=== PATIENT | female | born 1955 | race Caucasian/White ===

== ENCOUNTER 2020-10-05 14:09 | Outpatient (CLI) | payer OTHER, SELFPAY ==
--- NOTE | 2020-10-05 | ECG_ITS ---
Measurements Intervals Emigrant Rate: 81 P: -3 OK: 168 QRS: 32 QRSD: 98 T: 72 QT: 403 QTc: 468 Interpretive Statements SINUS RHYTHM BORDERLINE ST-T WAVE ABNORMALITY- ANTEROLAT/HIGH LAT LEADS BORDERLINE ECG Electronically Signed On 10-05-2020 16:47:17 [employer] by Clayton Cuellar D.O.
== END 2020-10-05 14:10 | disposition home or self-care (01) ==
PROVIDERS: PCP Internal Medicine
DX: D48.62 Neoplasm of uncertain behavior of left breast (principal)
CPT/HCPCS: 93005

== ENCOUNTER 2025-02-04 08:34 | Emergency (ER) | payer OTHER, SELFPAY ==
[2025-02-04 08:48] VITALS: BP 134/68; PULSE 90; RESP 16; TEMP 36.4; O2SAT 99
--- NOTE | 2025-02-04 08:56 | ED_ITS ---
HPI - URI/Sore Throat General Chief Complaint: Upper Respiratory Infection Stated Complaint: COUGH/SINUS PRESSURE/BODY ACHES Time Seen by Provider: 02/04/25 08:50 Source: patient and RN notes reviewed Mode of arrival: ambulatory Limitations: no limitations History of Present Illness HPI Narrative: 69-year-old female presents Express Care complaining of upper respiratory symptoms for 1 week. Patient says she has sinus pressure, productive cough, mucopurulent drainage. Patient also reports having body aches. Patient says she does not feel like she is getting better and over the last couple days she is her symptoms have significantly got worse. Patient has been doing [id number] treat using day/cold flu medications without relief. Patient denies any fevers, sore throat, ear pain, shortness of breath, chest pain, nausea, vomiting, diarrhea, or any other symptoms. Patient reports having history of diabetes and hypertension. Related Data Home Medications ?Medication ?Instructions ?Recorded ?Confirmed ?Last Taken ?Type aspirin 81 mg tablet,delayed 81 mg PO DAILY 10/07/19 10/07/19 Unknown History release (Adult Low Dose Aspirin) simvastatin 40 mg tablet 40 mg PO DAILY 10/07/19 10/07/19 Unknown History lisinopril 20 tablet 02/04/25 Unknown History mg-hydrochlorothiazide 25 mg tablet metformin 500 mg tablet mg 02/04/25 Unknown History raloxifene 60 mg tablet mg 02/04/25 Unknown History Allergies Allergy/AdvReac Type Severity Reaction Status Date / Time iodine Allergy Unknown Rash Verified 02/04/25 08:38 Review of Systems Review of Systems: CONSTITUTIONAL: Denies fever, chills, body aches, or sweats. EYES: Denies visual changes, redness, or discharge. ENT: Positive for congestion and sinus pressure. Negative for rhinorrhea, sore throat, or otalgia. CARDIOVASCULAR: Denies chest pain, palpitations, or edema. RESPIRATORY: Positive for cough. Negative for dyspnea. GASTROINTESTINAL: Denies abdominal pain, nausea, vomiting, or diarrhea. GENITOURINARY: Denies dysuria or hematuria. SKIN: Denies rash or itching. MUSCULOSKELETAL: Denies back pain, joint pain, or myalgia. NEUROLOGIC: Denies headache, numbness, or weakness. PSYCHIATRIC: Denies anxiety or depression. All other systems reviewed are negative, except as documented in HPI. [facility] Past Medical History Medical History Dyslipidemia Essential (primary) hypertension Conjunctivitis, both eyes 05/22/2018 Migraine Headache Surgical History Surgical History Status post mitral valve annuloplasty 09/19/2019 Family History Family History Mother Hypertension Family history of elevated blood lipids Family history of malignant neoplasm of breast in first degree relative Father Acute myocardial infarction Family history of malignant neoplasm of thyroid Social History Social History Smoking status: Never smoker Second hand tobacco smoke exposure: No Alcohol intake: former Substance use: never Substance use type: does not use Comments At the time of my signature, I reviewed and agree with the nursing past medical, surgical, social, and family history. There is no relevant family history pertinent to the patient complaint. Exam Narrative: GENERAL: This is a well-nourished, well-developed adult, in no apparent distress. They are non ill-appearing, nontoxic appearing. HEAD: normocephalic, atraumatic. EYES: Sclera clear/white. Vision is grossly intact. Conjunctiva normal bilaterally. Extraocular movements intact. EARS: External ears normal, auditory canals clear and without drainage, TMs without erythema or perforation. Hearing grossly intact. NOSE: External nose normal with no obvious nasal discharge, nasal turbinates erythematous, no rhinorrhea. Sinus tenderness to palpation to the frontal maxillary sinuses. Impaired transillumination of maxillary sinuses bilaterally. THROAT: Mucous membranes moist, posterior pharynx without redness or swelling, or exudate. Uvula is midline. Postnasal drip present. NECK: Neck supple, non-tender without lymphadenopathy, masses or thyromegaly. CARDIOVASCULAR: Regular rate and rhythm without murmurs, gallops, or rubs. RESPIRATORY: Clear to auscultation. Breath sounds equal bilaterally. No wheezes, rales, or rhonchi. SKIN: warm, Dry, intact with no suspicious lesions or rash, good texture and turgor. NEURO: awake, alert, and oriented to person, place and time. There were no o bvious focal neurologic abnormalities. EXTREMITIES: No joint tenderness, effusion, or edema noted. BACK: Nontender without deformity. Course Course Emergency Course: Portions of this record may have been created with voice recognition software Level of Care: Express Care Visit Vital Signs Vital signs: Vital Signs Oxygen Delivery Room Air 02/04/25 08:40 Temperature 97.5 F L 02/04/25 08:48 Pulse Rate 90 02/04/25 08:48 Respiratory Rate 16 02/04/25 08:48 Blood Pressure 134/68 02/04/25 08:48 Pulse Oximetry 99 02/04/25 08:48 Oxygen Delivery Room Air 02/04/25 08:40 MDM - URI/Sore Throat MDM Narrative Medical decision making narrative: Patient likely developed a bacterial sinusitis given her sudden worsening of symptoms. Will treat empirically with Augmentin. Discussed physical exam findings. Advised supportive measures and signs/symptoms to go to the ER. Pt is appropriate for outpt treatment and f/u. Differential Diagnosis Differential diagnosis: Likely upper respiratory infection, sinusitis and viral infection Discharge Plan Discharge Clinical Impression: Sinusitis Qualifiers: Sinusitis location: unspecified location Chronicity: acute Recurrence: non- recurrent Qualified Code(s): J01.90 - Acute sinusitis, unspecified Patient Disposition: Home Condition: Stable Instructions: Antibiotic Form, Sinusitis (ED) Additional Instructions: Take the antibiotics as directed and complete the course even if you start to feel better. You may use a Neti pot saline rinse 3 times a day with lukewarm distilled water Continue to take Tylenol or Motrin for pain. Use a humidifier or vaporizer at night. Drink plenty of water. 8-10 glasses per day. Use flonase 2 times per day for 5 days then as needed Take mucinex 2 times per day and be sure to take with 8oz of water. Follow up with Primary provider in 3-5 days Please go to the ER if he develops any difficulty breathing, worsening symptoms, or any other concerns Patient Language: Nepali Prescriptions: New benzonatate 100 mg capsule 100 mg PO TID PRN (Reason: cough) Qty: 20 0RF amoxicillin-pot clavulanate 875-125 mg tablet 1 tablet PO Q12H 7 Days Qty: 14 0RF No Action metformin 500 mg tablet lisinopril-hydrochlorothiazide 20-25 mg tablet raloxifene 60 mg tablet aspirin [Adult Low Dose Aspirin] 81 mg tablet,delayed release (DR/EC) 81 mg PO DAILY simvastatin 40 mg tablet 40 mg PO DAILY Follow-up/Referrals: Nolberto,Dwayne Albert MD [Primary Care Provider] - Time of Disposition: 08:56
== END 2025-02-04 08:58 | disposition home or self-care (01) ==
PROVIDERS: PCP Internal Medicine
DX: J01.90 Acute sinusitis, unspecified (principal); I10 Essential (primary) hypertension; E78.5 Hyperlipidemia, unspecified; E11.9 Type 2 diabetes mellitus without complications; Z79.82 Long term (current) use of aspirin
CPT/HCPCS: 99213; G0463